=== PATIENT | male | born 1970 | race Native Hawaiian/Other Pacific Islander ===

== ENCOUNTER 2019-07-15 23:20 | Emergency (ER) | payer OTHER ==
[~2019-07-15] VITALS: Ht 182.9 cm; Wt 162.7 kg
[~2019-07-15 23:20] MED LIST: FLUO-191 PO; LISI-661 PO; LORA-999 PO; SULF-168 PO
[2019-07-16] MEDS ORDERED: ValACYclovir HCL 500 MG TABLET PO ONE (00:30)
[2019-07-16 01:12] VITALS: BP 148/83
== END 2019-07-16 01:14 | disposition home or self-care (01) ==
LOC: EMS 23:20
DX: B02.9 Zoster without complications (principal); M54.6 Pain in thoracic spine; F41.9 Anxiety disorder, unspecified; F32.9 Major depressive disorder, single episode, unspecified; F20.9 Schizophrenia, unspecified; I10 Essential (primary) hypertension; Z79.899 Other long term (current) drug therapy